=== PATIENT | male | born 1975 | race Caucasian/White ===

== ENCOUNTER 2016-09-11 12:34 | Emergency (ER) | payer MEDICAID ==
[~2016-09-11] VITALS: Ht 182.9 cm; Wt 88.5 kg
[~2016-09-11 12:34] MED LIST: CAR3125T PO; ENAL5TAB92 PO; HYDR25TA4 PO
[2016-09-11 12:55] VITALS: BP 154/111
[2016-09-11] MEDS ORDERED: cefTRIAXone SOD 1,000 MG VL IM ONE (13:15)
== END 2016-09-11 13:38 | disposition home or self-care (01) ==
LOC: ER 12:34
DX: L03.011 Cellulitis of right finger (principal); I11.0 Hypertensive heart disease with heart failure; I50.9 Heart failure, unspecified; F17.210 Nicotine dependence, cigarettes, uncomplicated; Z79.899 Other long term (current) drug therapy; Z98.61 Coronary angioplasty status
CPT/HCPCS: 96372; 99283; J0696

== ENCOUNTER 2017-07-05 23:00 | Emergency (ER) | payer MEDICAID ==
[~2017-07-05] VITALS: Ht 182.9 cm; Wt 88.5 kg
[2017-07-05 23:04] VITALS: BP 134/95
[2017-07-05 23:38] LABS: Basophils # (auto) 0.1 uL; Basophils % (auto) 2.3 % (0.0-2.0); Eosinophils # (auto) 0.2 uL; Hematocrit 49.4 % (41.0-53.0); Lymphocytes # (auto) 2.1 uL; Lymphocytes % (auto) 33.3 % (10.0-50.0); Mean Corpuscular Hemoglobin 30.6 pg (28.0-32.0); Mean Corpuscular Hgb Conc. 34.3 g/dL (32.0-36.0); Mean Corpuscular Volume 89.2 fL (80.0-100.0); Monocytes # (auto) 0.6 uL; Monocytes % (auto) 9.2 % (0.0-12.0); Neutrophils # (auto) 3.4 uL; Neutrophils % (auto) 52.2 % (37.0-80.0); Nucleated Red Blood Cells % 0.1 %; Platelet Count (auto) 215 10^3/uL (140-450); Red Blood Cells 5.54 10^6/uL (4.5-5.90); Red Cell Distribution Width 14.5 % (11.8-14.3); White Blood Cell 6.4 10^3/uL (4.4-10.8)
[2017-07-05 23:56] LABS: Albumin 3.4 g/dL (3.4-5.0); BUN/Creatinine Ratio 19.9; Calcium 8.6 mg/dL (8.5-10.1); Potassium 4.3 mmol/L (3.5-5.1)
[2017-07-06] LABS: Bilirubin, Total 0.6 mg/dL (0.2-1.0); Total Protein 6.4 g/dL (6.4-8.2)
== END 2017-07-06 01:14 | disposition left against medical advice (07) ==
LOC: ER 23:00
DX: R07.9 Chest pain, unspecified (principal); Z53.21 Procedure and treatment not carried out due to patient leaving prior to being seen by health care provider
CPT/HCPCS: 36415; 71045; 80053; 83880; 84484; 85025; 93005

== ENCOUNTER 2017-07-07 23:38 | Emergency (ER) | payer MEDICAID ==
[~2017-07-07] VITALS: Ht 177.8 cm; Wt 86.2 kg
[2017-07-08 01:20] LABS: Basophils # (auto) 0.1 uL; Basophils % (auto) 2.6 % (0.0-2.0); Eosinophils # (auto) 0 uL; Eosinophils % (auto) 0.9 % (0.0-7.0); Hematocrit 47.4 % (41.0-53.0); Hemoglobin 16.1 g/dL (13.5-17.5); Lymphocytes # (auto) 1.6 uL; Lymphocytes % (auto) 30.3 % (10.0-50.0); Mean Corpuscular Hgb Conc. 33.9 g/dL (32.0-36.0); Mean Corpuscular Volume 88.4 fL (80.0-100.0); Monocytes # (auto) 0.7 uL; Neutrophils # (auto) 2.7 uL; Neutrophils % (auto) 52.2 % (37.0-80.0); Nucleated Red Blood Cells % 0.1 %; Platelet Count (auto) 188 10^3/uL (140-450); Red Blood Cells 5.36 10^6/uL (4.5-5.90); Red Cell Distribution Width 14.8 % (11.8-14.3); White Blood Cell 5.2 10^3/uL (4.4-10.8)
[2017-07-08 01:26] LABS: Urine Bacteria NONE SEEN /hpf (None Seen); Urine Blood Negative /uL (Negative); Urine Mucus FEW (None Seen); Urine Specific Gravity 1.013 (1.001-1.035); Urine WBC <1 /hpf (0 - 3)
[2017-07-08 01:37] LABS: Albumin 3.1 g/dL (3.4-5.0); Calcium 8.1 mg/dL (8.5-10.1); INR 1.05 (0.9-1.15); Magnesium 2.3 mg/dL (1.6-2.6); Partial Thromboplastin Time 22.2 sec (22.64-33.71); Prothrombin Time 11.4 sec (9.37-12.3)
[2017-07-08 01:39] LABS: BUN/Creatinine Ratio 14.5
[2017-07-08 01:44] LABS: Bilirubin, Total 0.9 mg/dL (0.2-1.0); Total Protein 5.8 g/dL (6.4-8.2)
[2017-07-08 02:04] LABS: Alcohol, Urine < 3.0 mg/dL (0-5); Amphetamine Screen, Urine NEGATIVE (NEGATIVE); Barbiturate Scree,Urine NEGATIVE (NEGATIVE); Benzodiazephine Screen, Urine NEGATIVE (NEGATIVE); Cannabinoid Screen, Urine NEGATIVE (NEGATIVE); Cocaine Screen, Urine NEGATIVE (NEGATIVE); Opiate Scree,Urine NEGATIVE (NEGATIVE); Phencyclidine Screen, Urine NEGATIVE (NEGATIVE)
[2017-07-08] MEDS ORDERED: FUROSEMIDE 40 MG/4 ML VIAL IV ONE (02:15)
[2017-07-08 04:09] VITALS: BP 104/68
== END 2017-07-08 06:00 | disposition home or self-care (01) ==
LOC: EDBD 23:38 → ER 23:45
DX: R07.89 Other chest pain (principal); I11.0 Hypertensive heart disease with heart failure; I50.9 Heart failure, unspecified; R60.9 Edema, unspecified; F17.210 Nicotine dependence, cigarettes, uncomplicated
CPT/HCPCS: 36415; 71045; 80053; 80307; 81001; 83735; 83880; 84443; 84484; 85025; 85379; 85610; 85730; 93005; 96374; 99285; J1940

== ENCOUNTER 2017-07-09 22:23 | Emergency (ER) | payer MEDICAID ==
[~2017-07-09] VITALS: Ht 182.9 cm; Wt 86.2 kg
[2017-07-09 22:37] VITALS: BP 144/97
== END 2017-07-10 03:19 | disposition left against medical advice (07) ==
LOC: ER 22:23
DX: R00.2 Palpitations (principal); R07.9 Chest pain, unspecified; Z53.21 Procedure and treatment not carried out due to patient leaving prior to being seen by health care provider
CPT/HCPCS: 93005

== ENCOUNTER 2017-10-26 03:05 | Inpatient (IN) | payer MEDICAID ==
[~2017-10-26] VITALS: Ht 182.9 cm; Wt 88.1 kg
[2017-10-26 04:01] LABS: Basophils # (auto) 0.1 uL; Basophils % (auto) 1.1 % (0.0-2.0); Eosinophils # (auto) 0.1 uL; Eosinophils % (auto) 1.3 % (0.0-7.0); Hematocrit 44.5 % (41.0-53.0); Hemoglobin 14.8 g/dL (13.5-17.5); Lymphocytes % (auto) 11.5 % (10.0-50.0); Mean Corpuscular Hemoglobin 27.9 pg (28.0-32.0); Mean Corpuscular Hgb Conc. 33.2 g/dL (32.0-36.0); Monocytes # (auto) 0.7 uL; Monocytes % (auto) 8.2 % (0.0-12.0); Neutrophils # (auto) 6.6 uL; Neutrophils % (auto) 77.9 % (37.0-80.0); Platelet Count (auto) 223 10^3/uL (140-450); Red Cell Distribution Width 17.1 % (11.8-14.3); White Blood Cell 8.4 10^3/uL (4.4-10.8)
[2017-10-26 04:15] LABS: INR 2.31 (0.9-1.15); Prothrombin Time 23.6 sec (9.27-12.13)
[2017-10-26 04:18] LABS: Albumin 2.6 g/dL (3.4-5.0); BUN/Creatinine Ratio 14.3; Calcium 8.2 mg/dL (8.5-10.1); Magnesium 2.2 mg/dL (1.6-2.6); Potassium 3.9 mmol/L (3.5-5.1)
[2017-10-26] MEDS ORDERED: IOHEXOL 350 MG/ML 100ML IJ ONE (04:22)
[2017-10-26 04:23] LABS: Bilirubin, Total 2.1 mg/dL (0.2-1.0); Total Protein 6.2 g/dL (6.4-8.2)
[2017-10-26] MEDS ORDERED: SODIUM CHLORIDE 0.9% 1,000 ML IV ONE (04:30)
[2017-10-26] MEDS ORDERED: HYDROmorphone HCL 2 MG/ML VL IV ONE (04:30)
[2017-10-26] MEDS ORDERED: LORazepam 2MG/ML-1ML VIAL IV ONE (04:30)
[2017-10-26] MEDS ORDERED: ONDANSETRON HCL 4 MG/2 ML VIAL IV ONE (04:30)
[2017-10-26] MEDS ORDERED: ENOXAPARIN SOD 100 MG/1 ML SYRINGE SC ONE (05:30)
[2017-10-26] MEDS ORDERED: ONDANSETRON HCL 4 MG/2 ML VIAL IV PRN (05:45)
[2017-10-26] MEDS ORDERED: ACETAMINOPHEN 500 MG TAB PO PRN (05:45)
[2017-10-26] MEDS ORDERED: MORPHINE SULFATE 4 MG/ML SYR/VIAL IV PRN (05:45)
[2017-10-26] MEDS ORDERED: NITROGLYCERIN 0.4 MG SL TAB SL PRN (05:45)
[2017-10-26 07:22] LABS: Basophils # (auto) 0.1 uL; Basophils % (auto) 0.8 % (0.0-2.0); Eosinophils # (auto) 0.1 uL; Eosinophils % (auto) 1.1 % (0.0-7.0); Hematocrit 42.5 % (41.0-53.0); Hemoglobin 14.2 g/dL (13.5-17.5); Lymphocytes # (auto) 0.9 uL; Lymphocytes % (auto) 11.1 % (10.0-50.0); Mean Corpuscular Hemoglobin 28.1 pg (28.0-32.0); Mean Corpuscular Hgb Conc. 33.3 g/dL (32.0-36.0); Mean Corpuscular Volume 84.5 fL (80.0-100.0); Monocytes # (auto) 0.6 uL; Monocytes % (auto) 7.2 % (0.0-12.0); Neutrophils # (auto) 6.4 uL; Neutrophils % (auto) 79.8 % (37.0-80.0); Nucleated Red Blood Cells % 0.1 %; Platelet Count (auto) 214 10^3/uL (140-450); Red Blood Cells 5.04 10^6/uL (4.5-5.90); Red Cell Distribution Width 16.9 % (11.8-14.3)
[2017-10-26 07:42] LABS: BUN/Creatinine Ratio 15.2; Calcium 7.8 mg/dL (8.5-10.1)
[2017-10-26 08:00] VITALS: BP 116/96
[2017-10-26] MEDS ORDERED: FUROSEMIDE 20 MG TAB PO SCH (10:00)
[2017-10-26] MEDS: CARVEDILOL 3.125 MG TAB PO SCH ×2 (10:00→22:00)
[2017-10-26] MEDS: ASPirin-EC 81 mg tab PO SCH (11:11)
[2017-10-26] MEDS: LORazepam 0.5 MG TAB PO PRN ×2 (11:12→23:47)
[2017-10-26] MEDS: FAMOTIDINE 20 MG TAB PO SCH (11:12)
[2017-10-26 11:34] VITALS: BP 116/96
[2017-10-26 12:00] VITALS: BP 107/65
[2017-10-26] MEDS ORDERED: POTASSIUM CHL 20 Meq TABLET PO ONE (12:30)
[2017-10-26] MEDS ORDERED: ENALAPRIL MALEATE 2.5 MG TAB PO ONE (12:30)
[2017-10-26] MEDS ORDERED: PROMETHAZINE W/CODEINE 5 ML ORAL SYRUP PO PRN (12:30)
[2017-10-26] MEDS ORDERED: FUROSEMIDE 40 MG/4 ML VIAL IV ONE (12:30)
[2017-10-26] MEDS ORDERED: SPIRONOLACTONE 25 MG TAB PO ONE (12:30)
[2017-10-26] MEDS: guaiFENesin-CODEINE LIQUID 5 ML UD PO PRN ×2 (16:30→20:50)
[2017-10-26] MEDS: MORPHINE SULFATE 4 MG/ML SYR/VIAL IV PRN ×2 (16:37→20:40)
[2017-10-26 17:00] VITALS: BP 102/65
[2017-10-26] MEDS ORDERED: WARFARIN SODIUM 1 MG TAB PO ONE (17:00)
[2017-10-26 20:00] VITALS: BP 96/74
[2017-10-26 22:00] VITALS: BP 96/74
[2017-10-27] MEDS: guaiFENesin-CODEINE LIQUID 5 ML UD PO PRN (03:22)
[2017-10-27 05:00] VITALS: BP 93/63
[2017-10-27 08:04] LABS: BUN/Creatinine Ratio 16.9; Potassium 4.5 mmol/L (3.5-5.1)
[2017-10-27 08:32] LABS: INR 2.08 (0.9-1.15); Prothrombin Time 21.4 sec (9.27-12.13)
[2017-10-27 09:00] VITALS: BP 96/71
[2017-10-27] MEDS ORDERED: ENALAPRIL MALEATE 2.5 MG TAB PO SCH (10:00)
[2017-10-27] MEDS: POTASSIUM CHL 20 Meq TABLET PO SCH (10:00)
[2017-10-27] MEDS: LOSARTAN POTASSIUM 25 MG TAB PO SCH (10:00)
[2017-10-27] MEDS: CARVEDILOL 3.125 MG TAB PO SCH ×2 (10:00→21:56)
[2017-10-27 10:04] LABS: Alcohol, Urine < 3.0 mg/dL (0-5); Amphetamine Screen, Urine NEGATIVE (NEGATIVE); Barbiturate Scree,Urine NEGATIVE (NEGATIVE); Benzodiazephine Screen, Urine NEGATIVE (NEGATIVE); Cannabinoid Screen, Urine NEGATIVE (NEGATIVE); Cocaine Screen, Urine NEGATIVE (NEGATIVE); Opiate Scree,Urine POSITIVE (NEGATIVE); Phencyclidine Screen, Urine NEGATIVE (NEGATIVE)
[2017-10-27] MEDS: SPIRONOLACTONE 25 MG TAB PO SCH (10:07)
[2017-10-27] MEDS: MORPHINE SULFATE 4 MG/ML SYR/VIAL IV PRN ×2 (10:07→18:29)
[2017-10-27] MEDS: ASPirin-EC 81 mg tab PO SCH (10:08)
[2017-10-27] MEDS: FAMOTIDINE 20 MG TAB PO SCH (10:08)
[2017-10-27 13:00] VITALS: BP 117/76
[2017-10-27 16:52] VITALS: BP 100/76
[2017-10-27] MEDS ORDERED: WARFARIN SODIUM 1 MG TAB PO ONE (17:00)
[2017-10-27] MEDS: FUROSEMIDE 40 MG/4 ML VIAL IV SCH (18:31)
[2017-10-27 22:00] VITALS: BP 103/74
[2017-10-28] MEDS: MORPHINE SULFATE 4 MG/ML SYR/VIAL IV PRN ×3 (00:13→20:02)
[2017-10-28 05:00] VITALS: BP 106/71
[2017-10-28] MEDS: guaiFENesin-CODEINE LIQUID 5 ML UD PO PRN ×3 (05:29→22:22)
[2017-10-28 08:06] LABS: INR 1.75 (0.9-1.15); Prothrombin Time 18.1 sec (9.27-12.13)
[2017-10-28 08:07] LABS: BUN/Creatinine Ratio 20.3; Calcium 8.3 mg/dL (8.5-10.1); Potassium 4.6 mmol/L (3.5-5.1)
[2017-10-28 08:34] VITALS: BP 96/76
[2017-10-28] MEDS: POTASSIUM CHL 20 Meq TABLET PO SCH (10:00)
[2017-10-28] MEDS: LOSARTAN POTASSIUM 25 MG TAB PO SCH (10:00)
[2017-10-28] MEDS: CARVEDILOL 3.125 MG TAB PO SCH ×3 (10:00→23:16)
[2017-10-28] MEDS: FAMOTIDINE 20 MG TAB PO SCH (10:41)
[2017-10-28] MEDS: ASPirin-EC 81 mg tab PO SCH (10:41)
[2017-10-28] MEDS: SPIRONOLACTONE 25 MG TAB PO SCH (10:41)
[2017-10-28 12:08] VITALS: BP 110/85
[2017-10-28] MEDS ORDERED: ALBUTEROL SULF 2.5 MG/0.5ML(0.5%) NEB SOLN NEB PRN (14:45)
[2017-10-28] MEDS ORDERED: cefTRIAXone 1GM/10ml IVPUSH 10 ML IV SCH (15:00)
[2017-10-28 15:25] VITALS: BP 110/81
[2017-10-28] MEDS: AZITHROMYCIN 500MG/ 250ML 250 ML IV SCH ×2 (16:00→19:06)
[2017-10-28 16:31] VITALS: BP 113/82
[2017-10-28] MEDS: FUROSEMIDE 40 MG/4 ML VIAL IV SCH (16:36)
[2017-10-28] MEDS ORDERED: WARFARIN SODIUM 2 MG TAB PO ONE (17:00)
[2017-10-28 22:00] VITALS: BP 97/73
[2017-10-29 05:00] VITALS: BP 97/66
[2017-10-29 05:46] LABS: Basophils # (auto) 0.1 uL; Basophils % (auto) 2.3 % (0.0-2.0); Eosinophils # (auto) 0.1 uL; Hematocrit 43.2 % (41.0-53.0); Hemoglobin 14.5 g/dL (13.5-17.5); Lymphocytes # (auto) 0.9 uL; Lymphocytes % (auto) 14.7 % (10.0-50.0); Mean Corpuscular Hemoglobin 28.6 pg (28.0-32.0); Mean Corpuscular Hgb Conc. 33.6 g/dL (32.0-36.0); Monocytes # (auto) 0.4 uL; Monocytes % (auto) 7.5 % (0.0-12.0); Neutrophils # (auto) 4.3 uL; Neutrophils % (auto) 73.5 % (37.0-80.0); Nucleated Red Blood Cells % 0.1 %; Platelet Count (auto) 222 10^3/uL (140-450); Red Blood Cells 5.08 10^6/uL (4.5-5.90); Red Cell Distribution Width 17.2 % (11.8-14.3); White Blood Cell 5.9 10^3/uL (4.4-10.8)
[2017-10-29 05:53] LABS: INR 1.88 (0.9-1.15); Prothrombin Time 19.4 sec (9.27-12.13)
[2017-10-29 09:00] VITALS: BP 96/73
[2017-10-29] MEDS: LOSARTAN POTASSIUM 25 MG TAB PO SCH (10:00)
[2017-10-29] MEDS: POTASSIUM CHL 20 Meq TABLET PO SCH (10:54)
[2017-10-29] MEDS: SPIRONOLACTONE 25 MG TAB PO SCH (10:54)
[2017-10-29] MEDS: ASPirin-EC 81 mg tab PO SCH (10:54)
[2017-10-29] MEDS: FAMOTIDINE 20 MG TAB PO SCH (10:54)
[2017-10-29] MEDS: FUROSEMIDE 40 MG/4 ML VIAL IV SCH (10:55)
[2017-10-29] MEDS: CARVEDILOL 3.125 MG TAB PO SCH ×2 (10:55→22:00)
[2017-10-29] MEDS: guaiFENesin-CODEINE LIQUID 5 ML UD PO PRN (10:55)
[2017-10-29] MEDS: MORPHINE SULFATE 4 MG/ML SYR/VIAL IV PRN ×2 (10:56→17:26)
[2017-10-29] MEDS ORDERED: MILRINONE 4 MG in SODIUM CHL 0.9% 50 ML IV ONE (12:15)
[2017-10-29] MEDS: MILRINONE 20MG/100ML 100 ML IV SCH ×2 (12:46→22:56)
[2017-10-29 13:00] VITALS: BP 102/69
[2017-10-29 17:00] VITALS: BP 98/68
[2017-10-29] MEDS ORDERED: WARFARIN SODIUM 5 MG TAB PO ONE (17:00)
[2017-10-29 22:16] VITALS: BP 90/73
[2017-10-30] MEDS: MORPHINE SULFATE 4 MG/ML SYR/VIAL IV PRN ×2 (02:13→17:21)
[2017-10-30] MEDS: guaiFENesin-CODEINE LIQUID 5 ML UD PO PRN (02:14)
[2017-10-30] MEDS: MILRINONE 20MG/100ML 100 ML IV SCH ×2 (02:14→17:03)
[2017-10-30 05:53] VITALS: BP 112/86
[2017-10-30 07:39] LABS: INR 1.99 (0.9-1.15); Prothrombin Time 20.5 sec (9.27-12.13)
[2017-10-30 07:41] LABS: BUN/Creatinine Ratio 20.3; Calcium 8.1 mg/dL (8.5-10.1)
[2017-10-30 08:14] LABS: Basophils # (auto) 0.1 uL; Basophils % (auto) 1.5 % (0.0-2.0); Eosinophils # (auto) 0.2 uL; Eosinophils % (auto) 4.1 % (0.0-7.0); Hemoglobin 13.3 g/dL (13.5-17.5); Lymphocytes # (auto) 0.8 uL; Lymphocytes % (auto) 16.4 % (10.0-50.0); Mean Corpuscular Hemoglobin 27.6 pg (28.0-32.0); Mean Corpuscular Hgb Conc. 32.5 g/dL (32.0-36.0); Mean Corpuscular Volume 84.9 fL (80.0-100.0); Monocytes # (auto) 0.5 uL; Monocytes % (auto) 10.1 % (0.0-12.0); Neutrophils # (auto) 3.3 uL; Neutrophils % (auto) 67.9 % (37.0-80.0); Nucleated Red Blood Cells % 0.1 %; Platelet Count (auto) 229 10^3/uL (140-450); Red Blood Cells 4.83 10^6/uL (4.5-5.90); Red Cell Distribution Width 17.1 % (11.8-14.3); White Blood Cell 4.9 10^3/uL (4.4-10.8)
[2017-10-30 09:09] VITALS: BP 100/83
[2017-10-30] MEDS: FUROSEMIDE 40 MG/4 ML VIAL IV SCH (09:57)
[2017-10-30] MEDS: SPIRONOLACTONE 25 MG TAB PO SCH (09:57)
[2017-10-30] MEDS: FAMOTIDINE 20 MG TAB PO SCH (09:58)
[2017-10-30] MEDS: CARVEDILOL 3.125 MG TAB PO SCH ×2 (09:58→22:00)
[2017-10-30] MEDS: POTASSIUM CHL 20 Meq TABLET PO SCH (09:58)
[2017-10-30] MEDS: ASPirin-EC 81 mg tab PO SCH (09:58)
[2017-10-30] MEDS ORDERED: LOSARTAN POTASSIUM 25 MG TAB PO ONE (10:00)
[2017-10-30 13:22] VITALS: BP 89/69
[2017-10-30 14:10] VITALS: BP 102/75
[2017-10-30] MEDS ORDERED: WARFARIN SODIUM 1 MG TAB PO ONE (17:00)
[2017-10-30 17:54] VITALS: BP 93/71
[2017-10-30 22:00] VITALS: BP 101/70
[2017-10-31] MEDS: MILRINONE 20MG/100ML 100 ML IV SCH (02:25)
[2017-10-31 04:50] VITALS: BP 118/77
[2017-10-31 06:20] LABS: Basophils # (auto) 0.1 uL; Basophils % (auto) 1.2 % (0.0-2.0); Eosinophils # (auto) 0.2 uL; Eosinophils % (auto) 3.6 % (0.0-7.0); Hematocrit 40.7 % (41.0-53.0); Hemoglobin 13.7 g/dL (13.5-17.5); Lymphocytes # (auto) 0.8 uL; Lymphocytes % (auto) 17.5 % (10.0-50.0); Mean Corpuscular Hemoglobin 28.5 pg (28.0-32.0); Mean Corpuscular Hgb Conc. 33.6 g/dL (32.0-36.0); Mean Corpuscular Volume 84.8 fL (80.0-100.0); Monocytes # (auto) 0.4 uL; Neutrophils % (auto) 67.7 % (37.0-80.0); Nucleated Red Blood Cells % 0.1 %; Platelet Count (auto) 254 10^3/uL (140-450); Red Cell Distribution Width 16.8 % (11.8-14.3); White Blood Cell 4.5 10^3/uL (4.4-10.8)
[2017-10-31 06:32] LABS: INR 2.05 (0.9-1.15); Prothrombin Time 21.1 sec (9.27-12.13)
[2017-10-31 06:50] LABS: Albumin 2.4 g/dL (3.4-5.0); Calcium 8.2 mg/dL (8.5-10.1); Potassium 4.4 mmol/L (3.5-5.1)
[2017-10-31 06:52] LABS: BUN/Creatinine Ratio 21.5
[2017-10-31 06:55] LABS: Bilirubin, Total 0.9 mg/dL (0.2-1.0)
[2017-10-31] MEDS: HYDROcodone-ACET 5/325MG TAB PO PRN ×2 (08:04→12:30)
[2017-10-31 08:50] VITALS: BP 133/67
[2017-10-31] MEDS ORDERED: LOSARTAN POTASSIUM 50 MG TAB PO SCH (10:00)
[2017-10-31] MEDS: POTASSIUM CHL 20 Meq TABLET PO SCH (10:00)
[2017-10-31] MEDS: SPIRONOLACTONE 25 MG TAB PO SCH (10:00)
[2017-10-31] MEDS: FUROSEMIDE 40 MG/4 ML VIAL IV SCH (10:27)
[2017-10-31] MEDS: CARVEDILOL 3.125 MG TAB PO SCH (10:29)
[2017-10-31] MEDS: FAMOTIDINE 20 MG TAB PO SCH (10:29)
[2017-10-31] MEDS: ASPirin-EC 81 mg tab PO SCH (10:29)
[2017-10-31 10:57] VITALS: BP 133/67
[2017-10-31 12:44] VITALS: BP 109/78
[2017-10-31] MEDS ORDERED: WARFARIN SODIUM 1 MG TAB PO ONE (17:00)
== END 2017-10-31 15:00 | disposition home or self-care (01) | DRG 134 ==
LOC: ER 03:06 → TELE 03:07 → TELE-CENTR 08:14
PROVIDERS: ADMIT Nurse Practitioner Family; ATTEND Internal Medicine
DX: I26.99 Other pulmonary embolism without acute cor pulmonale (principal); I50.43 Acute on chronic combined systolic (congestive) and diastolic (congestive) heart failure; E44.0 Moderate protein-calorie malnutrition; I42.0 Dilated cardiomyopathy; I11.0 Hypertensive heart disease with heart failure; F17.210 Nicotine dependence, cigarettes, uncomplicated; Z72.89 Other problems related to lifestyle; Z79.01 Long term (current) use of anticoagulants; Z79.899 Other long term (current) drug therapy; Z95.810 Presence of automatic (implantable) cardiac defibrillator; F41.9 Anxiety disorder, unspecified; Z98.61 Coronary angioplasty status; F19.11 Other psychoactive substance abuse, in remission; Z68.26 Body mass index [BMI] 26.0-26.9, adult
CPT/HCPCS: 36415; 36600; 71045; 71046; 71275; 80048; 80053; 80307; 82805; 83735; 83880; 84484; 85025; 85610; 85730; 87040; 87081; 93005; 93306; 93970; 94640; 96361; 96372; 96374; 96375; 99291; J0696; J2405

== ENCOUNTER 2018-01-04 08:48 | Emergency (ER) | payer MEDICAID ==
[~2018-01-04] VITALS: Ht 182.9 cm; Wt 90.7 kg
[~2018-01-04 08:48] MED LIST changes: +ENAL5TAB PO; -ENAL5TAB92 PO
[2018-01-04] MEDS ORDERED: FUROSEMIDE 40 MG/4 ML VIAL IV ONE ×2 (09:15→12:15)
[2018-01-04 09:55] LABS: Eosinophils # (auto) 0.1 uL; Hematocrit 49.6 % (41.0-53.0); Monocytes # (auto) 0.6 uL; Nucleated Red Blood Cells % 0.1 %
[2018-01-04 09:56] LABS: Basophils # (auto) 0 uL; Basophils % (auto) 0.9 % (0.0-2.0); Eosinophils % (auto) 1.2 % (0.0-7.0); Hemoglobin 16.2 g/dL (13.5-17.5); Lymphocytes # (auto) 0.5 uL; Lymphocytes % (auto) 10.1 % (10.0-50.0); Mean Corpuscular Hemoglobin 26.9 pg (28.0-32.0); Mean Corpuscular Hgb Conc. 32.8 g/dL (32.0-36.0); Mean Corpuscular Volume 82.2 fL (80.0-100.0); Monocytes % (auto) 11.7 % (0.0-12.0); Neutrophils # (auto) 3.9 uL; Neutrophils % (auto) 76.1 % (37.0-80.0); Platelet Count (auto) 212 10^3/uL (140-450); Red Blood Cells 6.03 10^6/uL (4.5-5.90); Red Cell Distribution Width 18.9 % (11.8-14.3); White Blood Cell 5.2 10^3/uL (4.4-10.8)
[2018-01-04 10:10] LABS: BUN/Creatinine Ratio 20.3; Calcium 8.3 mg/dL (8.5-10.1); Potassium 3.8 mmol/L (3.5-5.1)
[2018-01-04 10:15] LABS: Bilirubin, Total 2.2 mg/dL (0.2-1.0)
[2018-01-04] MEDS ORDERED: ENOXAPARIN SOD 100 MG/1 ML SYRINGE SC ONE (12:00)
[2018-01-04 12:15] VITALS: BP 103/57
[2018-01-04] MEDS ORDERED: ACETAMINOPHEN 500 MG TAB PO PRN (12:15)
[2018-01-04] MEDS ORDERED: LORazepam 0.5 MG TAB PO PRN (12:15)
[2018-01-04] MEDS ORDERED: MORPHINE SULFATE 4 MG/ML SYR/VIAL IV PRN (12:15)
[2018-01-04] MEDS ORDERED: POTASSIUM CHL 20 Meq TABLET PO ONE (12:15)
[2018-01-04] MEDS ORDERED: NITROGLYCERIN 0.4 MG SL TAB SL PRN (12:15)
[2018-01-04] MEDS ORDERED: traMADol HCL 50 MG TAB PO PRN (12:15)
[2018-01-04] MEDS ORDERED: NITROGLYCERIN 0.2MG/HR TOPICAL PATCH TD ONE (12:15)
[2018-01-04] MEDS ORDERED: ONDANSETRON HCL 4 MG/2 ML VIAL IV PRN (12:15)
[2018-01-04] MEDS ORDERED: NALBUPHINE HCL 10 MG/1ml INJECTION IV PRN (12:15)
[2018-01-04] MEDS ORDERED: ENALAPRIL MALEATE 2.5 MG TAB PO ONE (12:15)
[2018-01-04] MEDS ORDERED: CARVEDILOL 3.125 MG TAB PO ONE (12:15)
[2018-01-04] MEDS ORDERED: ENOXAPARIN SOD 40 MG/0.4 ML SYRINGE SC ONE (12:15)
[2018-01-04] MEDS ORDERED: TEMAZEPAM 15 MG CAP PO PRN (12:15)
[2018-01-04] MEDS ORDERED: LACTULOSE 20Gm/30ML SOLN PO PRN (12:15)
[2018-01-04] MEDS ORDERED: PANTOPRAZOLE 40 MG TAB PO ONE (12:30)
[2018-01-04] MEDS ORDERED: ASPirin 81 mg TAB PO ONE (12:30)
[2018-01-05] MEDS ORDERED: ENALAPRIL MALEATE 2.5 MG TAB PO SCH (10:00)
[2018-01-05] MEDS ORDERED: ENOXAPARIN SOD 40 MG/0.4 ML SYRINGE SC SCH (10:00)
[2018-01-05] MEDS ORDERED: ASPirin 81 mg TAB PO SCH ×2 (10:00)
[2018-01-05] MEDS ORDERED: PANTOPRAZOLE 40 MG TAB PO SCH (10:00)
[2018-01-05] MEDS ORDERED: NITROGLYCERIN 0.2MG/HR TOPICAL PATCH TD SCH (10:00)
[2018-01-05] MEDS ORDERED: CARVEDILOL 3.125 MG TAB PO SCH (10:00)
[2018-01-05] MEDS ORDERED: FUROSEMIDE 40 MG/4 ML VIAL IV SCH (10:00)
[2018-01-05] MEDS ORDERED: POTASSIUM CHL 20 Meq TABLET PO SCH (10:00)
== END 2018-01-04 12:37 | disposition left against medical advice (07) ==
LOC: ER 08:48
DX: I11.0 Hypertensive heart disease with heart failure (principal); I50.9 Heart failure, unspecified; R79.89 Other specified abnormal findings of blood chemistry; Z79.899 Other long term (current) drug therapy; Z86.711 Personal history of pulmonary embolism; Z95.0 Presence of cardiac pacemaker; Z98.61 Coronary angioplasty status; Z53.29 Procedure and treatment not carried out because of patient's decision for other reasons
CPT/HCPCS: 36415; 71046; 80053; 82550; 82962; 83880; 84484; 85025; 85379; 86141; 93005; 96374; 99285; J1940

== ENCOUNTER 2018-01-24 18:37 | Inpatient (IN) | payer MEDICAID ==
[~2018-01-24] VITALS: Ht 188 cm; Wt 89.4 kg
[2018-01-24 19:38] LABS: Basophils # (auto) 0.1 uL; Eosinophils # (auto) 0 uL; Lymphocytes # (auto) 0.6 uL; Lymphocytes % (auto) 14.6 % (10.0-50.0); Nucleated Red Blood Cells % 0.2 %
[2018-01-24 19:40] LABS: Basophils % (auto) 2.1 % (0.0-2.0); Hemoglobin 15.3 g/dL (13.5-17.5); Mean Corpuscular Hemoglobin 26.6 pg (28.0-32.0); Mean Corpuscular Hgb Conc. 32.5 g/dL (32.0-36.0); Mean Corpuscular Volume 82.1 fL (80.0-100.0); Monocytes # (auto) 0.7 uL; Monocytes % (auto) 16.2 % (0.0-12.0); Neutrophils # (auto) 2.8 uL; Neutrophils % (auto) 66.1 % (37.0-80.0); Platelet Count (auto) 227 10^3/uL (140-450); Red Blood Cells 5.73 10^6/uL (4.5-5.90); Red Cell Distribution Width 18.9 % (11.8-14.3); White Blood Cell 4.3 10^3/uL (4.4-10.8)
[2018-01-24 19:56] LABS: Albumin 2.9 g/dL (3.4-5.0); BUN/Creatinine Ratio 17.7; Calcium 8.6 mg/dL (8.5-10.1); Potassium 5.1 mmol/L (3.5-5.1)
[2018-01-24 20:01] LABS: Bilirubin, Total 1.9 mg/dL (0.2-1.0); Total Protein 6.9 g/dL (6.4-8.2)
[2018-01-24] MEDS ORDERED: NITROGLYCERIN 0.4 MG SL TAB SL PRN (21:15)
[2018-01-24] MEDS ORDERED: MORPHINE SULFATE 4 MG/ML SYR/VIAL IV PRN (21:15)
[2018-01-24] MEDS ORDERED: FUROSEMIDE 40 MG/4 ML VIAL IV ONE (21:15)
[2018-01-24] MEDS ORDERED: ACETAMINOPHEN 325 MG TAB PO PRN (21:30)
[2018-01-24] MEDS: ONDANSETRON HCL 4 MG/2 ML VIAL IV PRN (21:34)
[2018-01-24 22:05] LABS: INR 1.56 (0.9-1.15); Partial Thromboplastin Time 27.1 sec (23.78-33.04); Prothrombin Time 16.3 sec (9.27-12.13)
[2018-01-24] MEDS: CARVEDILOL 3.125 MG TAB PO SCH (22:25)
[2018-01-24] MEDS: APIXABAN 5 MG TAB PO SCH (22:25)
[2018-01-24] MEDS: FAMOTIDINE 20 MG TAB PO SCH (22:25)
[2018-01-25] VITALS (30 sets, daily range): BP systolic 84–131; BP diastolic 56–102
[2018-01-25] MEDS ORDERED: IOHEXOL 350 MG/ML 100ML IJ ONE (00:46)
[2018-01-25] MEDS: HYDROcodone-ACET 5/325MG TAB PO PRN (03:17)
[2018-01-25] MEDS ORDERED: DOXE25CA2 PO (04:04)
[2018-01-25] MEDS ORDERED: FURO40TA PO (04:04)
[2018-01-25] MEDS ORDERED: SPIR50TA5 PO (04:04)
[2018-01-25] MEDS ORDERED: FAM20T PO (04:07)
[2018-01-25] MEDS ORDERED: APIX5TAB OR (04:07)
[2018-01-25] MEDS ORDERED: POTA10TA51 PO (04:09)
[2018-01-25] MEDS ORDERED: FUROSEMIDE 20 MG/2 ML VIAL IV SCH (06:00)
[2018-01-25] MEDS ORDERED: LOSARTAN POTASSIUM 50 MG TAB PO SCH (10:00)
[2018-01-25] MEDS ORDERED: ASPirin 81 mg TAB PO SCH (10:00)
[2018-01-25] MEDS: APIXABAN 5 MG TAB PO SCH ×2 (10:50→22:02)
[2018-01-25] MEDS: FAMOTIDINE 20 MG TAB PO SCH ×2 (10:50→22:02)
[2018-01-25] MEDS: CARVEDILOL 3.125 MG TAB PO SCH ×2 (10:50→22:01)
[2018-01-25] MEDS: guaiFENesin-DM 100/10mg/5ml SYR PO PRN ×2 (11:41→17:33)
[2018-01-25] MEDS ORDERED: MILRINONE IV ONE (15:15)
[2018-01-25] MEDS ORDERED: SODIUM CHL 0.9% IV ONE (15:15)
[2018-01-25] MEDS: ALBUMIN 25% 100 ML IV SCH ×2 (15:36→17:32)
[2018-01-25] MEDS ORDERED: FUROSEMIDE 40 MG/4 ML VIAL IV ONE (17:00)
[2018-01-25] MEDS: MILRINONE 20MG/100ML 100 ML IV SCH (17:35)
[2018-01-25] MEDS ORDERED: FUROSEMIDE 40 MG/4 ML VIAL IV SCH (18:00)
[2018-01-25] MEDS: FUROSEMIDE 40 MG/4 ML VIAL IV SCH (18:37)
[2018-01-25] MEDS: TEMAZEPAM 15 MG CAP PO PRN (23:48)
[2018-01-26] VITALS (67 sets, daily range): BP systolic 89–141; BP diastolic 40–97
[2018-01-26] MEDS: MILRINONE 20MG/100ML 100 ML IV SCH ×3 (01:00→18:43)
[2018-01-26 05:00] LABS: BUN/Creatinine Ratio 25.5; Calcium 8.2 mg/dL (8.5-10.1); Potassium 4.1 mmol/L (3.5-5.1)
[2018-01-26] MEDS: FUROSEMIDE 40 MG/4 ML VIAL IV SCH ×2 (05:56→17:50)
[2018-01-26] MEDS: FAMOTIDINE 20 MG TAB PO SCH ×2 (09:45→22:00)
[2018-01-26] MEDS: DIGOXIN 0.125 MG TAB PO SCH (09:45)
[2018-01-26] MEDS: APIXABAN 5 MG TAB PO SCH ×2 (09:45→22:00)
[2018-01-26] MEDS: SACUBITRIL-VALSARTAN 24mg/26mg TAB PO SCH ×3 (09:45→22:00)
[2018-01-26] MEDS: CARVEDILOL 3.125 MG TAB PO SCH ×2 (09:46→22:00)
[2018-01-26] MEDS: guaiFENesin-DM 100/10mg/5ml SYR PO PRN (11:19)
[2018-01-26] MEDS: HYDROcodone-ACET 5/325MG TAB PO PRN (11:21)
[2018-01-26] MEDS: SPIRONOLACTONE 25 MG TAB PO SCH (17:50)
[2018-01-26] MEDS ORDERED: DOCUSATE SOD 100 MG CAP PO PRN (18:30)
[2018-01-26] MEDS: TEMAZEPAM 15 MG CAP PO PRN (22:57)
[2018-01-27] VITALS (60 sets, daily range): BP systolic 92–157; BP diastolic 46–92
[2018-01-27] MEDS: MILRINONE 20MG/100ML 100 ML IV SCH (03:49)
[2018-01-27] MEDS: SPIRONOLACTONE 25 MG TAB PO SCH ×2 (08:00→17:33)
[2018-01-27] MEDS: FUROSEMIDE 40 MG/4 ML VIAL IV SCH ×2 (08:00→17:33)
[2018-01-27] MEDS: guaiFENesin-DM 100/10mg/5ml SYR PO PRN ×2 (08:30→23:35)
[2018-01-27] MEDS: SACUBITRIL-VALSARTAN 24mg/26mg TAB PO SCH ×2 (10:00→21:35)
[2018-01-27] MEDS: APIXABAN 5 MG TAB PO SCH ×2 (10:46→21:51)
[2018-01-27] MEDS: CARVEDILOL 3.125 MG TAB PO SCH ×2 (10:46→21:52)
[2018-01-27] MEDS: DIGOXIN 0.125 MG TAB PO SCH (10:46)
[2018-01-27] MEDS: FAMOTIDINE 20 MG TAB PO SCH ×2 (10:47→21:51)
[2018-01-27] MEDS ORDERED: MILRINONE 20MG/100ML 100 ML IV ONE (14:01)
[2018-01-27] MEDS: TEMAZEPAM 15 MG CAP PO PRN (20:45)
[2018-01-27 21:17] LABS: BUN/Creatinine Ratio 19.4; Calcium 8.2 mg/dL (8.5-10.1); Magnesium 2.1 mg/dL (1.6-2.6); Potassium 3.9 mmol/L (3.5-5.1)
[2018-01-28] VITALS (22 sets, daily range): BP systolic 89–123; BP diastolic 38–86
[2018-01-28 03:37] LABS: Eosinophils # (auto) 0.1 uL; Hemoglobin 14.3 g/dL (13.5-17.5); Monocytes # (auto) 0.7 uL; Neutrophils % (auto) 65.9 % (37.0-80.0)
[2018-01-28 03:39] LABS: Basophils # (auto) 0.2 uL; Basophils % (auto) 4.3 % (0.0-2.0); Eosinophils % (auto) 1.2 % (0.0-7.0); Hematocrit 44.6 % (41.0-53.0); Lymphocytes # (auto) 0.5 uL; Lymphocytes % (auto) 11.8 % (10.0-50.0); Mean Corpuscular Hgb Conc. 32.1 g/dL (32.0-36.0); Monocytes % (auto) 16.8 % (0.0-12.0); Neutrophils # (auto) 2.9 uL; Nucleated Red Blood Cells % 0.1 %; Platelet Count (auto) 202 10^3/uL (140-450); Red Blood Cells 5.58 10^6/uL (4.5-5.90); Red Cell Distribution Width 18.8 % (11.8-14.3); White Blood Cell 4.4 10^3/uL (4.4-10.8)
[2018-01-28 03:40] LABS: Mean Corpuscular Hemoglobin 25.8 pg (28.0-32.0)
[2018-01-28] MEDS: guaiFENesin-DM 100/10mg/5ml SYR PO PRN ×2 (03:51→09:02)
[2018-01-28 04:14] LABS: BUN/Creatinine Ratio 21.7; Calcium 8.3 mg/dL (8.5-10.1); Potassium 4.1 mmol/L (3.5-5.1)
[2018-01-28] MEDS: SPIRONOLACTONE 25 MG TAB PO SCH ×2 (05:59→18:05)
[2018-01-28] MEDS: FUROSEMIDE 40 MG/4 ML VIAL IV SCH ×2 (06:07→18:06)
[2018-01-28] MEDS: ONDANSETRON HCL 4 MG/2 ML VIAL IV PRN (06:25)
[2018-01-28] MEDS ORDERED: LORazepam 2MG/ML-1ML VIAL IV ONE (06:45)
[2018-01-28] MEDS ORDERED: LORA-655 PO (08:37)
[2018-01-28] MEDS: SACUBITRIL-VALSARTAN 24mg/26mg TAB PO SCH ×2 (09:01→22:00)
[2018-01-28] MEDS: CARVEDILOL 3.125 MG TAB PO SCH (09:01)
[2018-01-28] MEDS: APIXABAN 5 MG TAB PO SCH ×2 (09:01→21:33)
[2018-01-28] MEDS: FAMOTIDINE 20 MG TAB PO SCH ×2 (09:02→21:38)
[2018-01-28] MEDS: DIGOXIN 0.125 MG TAB PO SCH (09:02)
[2018-01-28] MEDS: LORazepam 0.5 MG TAB PO PRN (11:22)
[2018-01-28] MEDS ORDERED: MORPHINE SULFATE 4 MG/ML SYR/VIAL IV PRN (12:30)
[2018-01-28] MEDS ORDERED: HYDROcodone-ACET 5/325MG TAB PO PRN (12:30)
[2018-01-28] MEDS ORDERED: MILRINONE 20MG/100ML 100 ML IV SCH (13:37)
[2018-01-28] MEDS ORDERED: MILRINONE 4 MG in SODIUM CHL 0.9% 50 ML IV ONE (14:00)
[2018-01-28] MEDS: MILRINONE 20MG/100ML 100 ML IV SCH (14:16)
[2018-01-28] MEDS: CARVEDILOL 12.5 MG TAB PO SCH (22:00)
[2018-01-29] VITALS (23 sets, daily range): BP systolic 92–136; BP diastolic 53–86
[2018-01-29] MEDS: LORazepam 0.5 MG TAB PO PRN ×2 (00:09→21:42)
[2018-01-29 04:04] LABS: BUN/Creatinine Ratio 22.6; Calcium 8.6 mg/dL (8.5-10.1); Potassium 4.2 mmol/L (3.5-5.1)
[2018-01-29] MEDS: SPIRONOLACTONE 25 MG TAB PO SCH ×2 (06:12→18:18)
[2018-01-29] MEDS: FUROSEMIDE 40 MG/4 ML VIAL IV SCH ×2 (06:12→18:18)
[2018-01-29] MEDS: MILRINONE 20MG/100ML 100 ML IV SCH ×2 (06:42→18:18)
[2018-01-29] MEDS: APIXABAN 5 MG TAB PO SCH ×2 (09:52→21:42)
[2018-01-29] MEDS: CARVEDILOL 12.5 MG TAB PO SCH ×2 (09:53→21:42)
[2018-01-29] MEDS: DIGOXIN 0.125 MG TAB PO SCH (09:53)
[2018-01-29] MEDS: SACUBITRIL-VALSARTAN 24mg/26mg TAB PO SCH ×2 (09:53→21:42)
[2018-01-29] MEDS: FAMOTIDINE 20 MG TAB PO SCH ×2 (09:53→21:42)
[2018-01-30 00:01] VITALS: BP 98/64
[2018-01-30 00:55] VITALS: BP 98/64
== END 2018-01-30 00:55 | disposition short-term general hospital (02) | DRG 194 ==
LOC: ER 18:37 → TELE 18:38 → TELE-WESTW 23:30 → ICU WEST 01-25 17:00
PROVIDERS: ADMIT Nurse Practitioner; ATTEND Internal Medicine
PROC: 5A09357 Assistance with Respiratory Ventilation, Less than 24 Consecutive Hours, Continuous Positive Airway Pressure (ICD-10-PCS; principal; 2018-01-28)
DX: I13.0 Hypertensive heart and chronic kidney disease with heart failure and stage 1 through stage 4 chronic kidney disease, or unspecified chronic kidney disease (principal); R57.0 Cardiogenic shock; N17.9 Acute kidney failure, unspecified; E44.0 Moderate protein-calorie malnutrition; I95.9 Hypotension, unspecified; I42.0 Dilated cardiomyopathy; I42.9 Cardiomyopathy, unspecified; Z79.01 Long term (current) use of anticoagulants; I50.43 Acute on chronic combined systolic (congestive) and diastolic (congestive) heart failure; F41.9 Anxiety disorder, unspecified; R06.03 Acute respiratory distress; N18.9 Chronic kidney disease, unspecified; I34.0 Nonrheumatic mitral (valve) insufficiency; Z86.711 Personal history of pulmonary embolism; Z86.718 Personal history of other venous thrombosis and embolism; Z95.810 Presence of automatic (implantable) cardiac defibrillator; Z68.25 Body mass index [BMI] 25.0-25.9, adult
CPT/HCPCS: 36415; 71045; 71046; 71275; 80048; 80053; 83735; 83880; 84484; 85025; 85379; 85610; 85730; 87081; 93005; 94660; 94761; 96374; 96375; G0378; J2405; P9047

== ENCOUNTER 2018-02-01 05:32 | Emergency (ER) | payer MEDICAID ==
[~2018-02-01] VITALS: Ht 182.9 cm; Wt 83.9 kg
[~2018-02-01 05:32] MED LIST changes: +APIX5TAB OR; +DOXE25CA2 PO; +FAM20T PO; +FURO40TA PO; +LORA-655 PO; +POTA10TA51 PO; +SPIR50TA5 PO
[2018-02-01 06:35] LABS: Eosinophils # (auto) 0.1 uL; Lymphocytes # (auto) 0.8 uL; Monocytes # (auto) 0.9 uL; White Blood Cell 6.4 10^3/uL (4.4-10.8)
[2018-02-01 06:37] LABS: Basophils # (auto) 0 uL; Basophils % (auto) 0.6 % (0.0-2.0); Hemoglobin 16.4 g/dL (13.5-17.5); Lymphocytes % (auto) 12.2 % (10.0-50.0); Mean Corpuscular Hemoglobin 26.2 pg (28.0-32.0); Mean Corpuscular Hgb Conc. 32.7 g/dL (32.0-36.0); Mean Corpuscular Volume 80.1 fL (80.0-100.0); Monocytes % (auto) 13.9 % (0.0-12.0); Neutrophils # (auto) 4.6 uL; Neutrophils % (auto) 72.3 % (37.0-80.0); Nucleated Red Blood Cells % 0.1 %; Platelet Count (auto) 247 10^3/uL (140-450); Red Blood Cells 6.25 10^6/uL (4.5-5.90); Red Cell Distribution Width 18.5 % (11.8-14.3)
[2018-02-01 06:57] LABS: Albumin 3.3 g/dL (3.4-5.0); Calcium 8.7 mg/dL (8.5-10.1); Magnesium 2.6 mg/dL (1.6-2.6); Potassium 5.4 mmol/L (3.5-5.1)
[2018-02-01] MEDS ORDERED: FUROSEMIDE 40 MG/4 ML VIAL IV ONE (07:00)
[2018-02-01 07:02] LABS: Bilirubin, Total 1.7 mg/dL (0.2-1.0); Total Protein 7.4 g/dL (6.4-8.2)
[2018-02-01 07:04] LABS: Urine Bacteria NONE SEEN /hpf (None Seen); Urine Blood Negative /uL (Negative); Urine Hyaline Cast MOD /lpf (0 - 2); Urine WBC 1 /hpf (0 - 3)
[2018-02-01 07:30] VITALS: BP 117/73
== END 2018-02-01 08:27 | disposition left against medical advice (07) ==
LOC: ER 05:35
DX: I11.0 Hypertensive heart disease with heart failure (principal); I50.9 Heart failure, unspecified; F15.90 Other stimulant use, unspecified, uncomplicated; R06.02 Shortness of breath; R05 Cough; Z86.711 Personal history of pulmonary embolism; Z98.61 Coronary angioplasty status; Z95.810 Presence of automatic (implantable) cardiac defibrillator; Z79.899 Other long term (current) drug therapy
CPT/HCPCS: 36415; 70450; 71045; 80053; 81001; 83735; 83880; 84484; 85025; 93005

== ENCOUNTER 2018-05-10 01:44 | Emergency (ER) | payer MEDICAID ==
[~2018-05-10] VITALS: Ht 177.8 cm; Wt 90.7 kg
[~2018-05-10 01:44] MED LIST changes: -CAR3125T PO; +DIGO0.1229 PO; -ENAL5TAB PO; +SACU1TAB PO
[2018-05-10 02:03] VITALS: BP 109/68
== END 2018-05-10 07:56 | disposition left against medical advice (07) ==
LOC: EDUNIT# 01:44 → ER 01:48
DX: R10.9 Unspecified abdominal pain (principal); Z53.21 Procedure and treatment not carried out due to patient leaving prior to being seen by health care provider

== ENCOUNTER 2018-05-29 06:02 | Inpatient (IN) | payer MEDICAID | END 2018-05-31 19:40 | disposition home or self-care (01) | LOC: TELE-WESTW 20:54 → ER 06:02 → TELE 15:24 → TELE-WESTW 20:54 | DX: K70.31 Alcoholic cirrhosis of liver with ascites (principal); I50.43 Acute on chronic combined systolic (congestive) and diastolic (congestive) heart failure; E44.0 Moderate protein-calorie malnutrition; I31.3 Pericardial effusion (noninflammatory); N18.3 Chronic kidney disease, stage 3 (moderate); I08.1 Rheumatic disorders of both mitral and tricuspid valves; I13.0 Hypertensive heart and chronic kidney disease with heart failure and stage 1 through stage 4 chronic kidney disease, or unspecified chronic kidney disease; E03.9 Hypothyroidism, unspecified ==

== ENCOUNTER 2019-02-24 01:32 | Emergency (ER) | payer MEDICAID ==
[~2019-02-24] VITALS: Ht 180.3 cm; Wt 86.2 kg
[~2019-02-24 01:32] MED LIST changes: +BUME1TAB3 PO; -DIGO0.1229 PO; +DIGO0.1238 PO; +FURO1TAB31 PO; -FURO40TA PO; +SPIR25TA8 PO; -SPIR50TA5 PO
[2019-02-24 02:07] VITALS: BP 154/71
== END 2019-02-24 02:14 | disposition left against medical advice (07) ==
LOC: EDBD 01:32 → ER 01:35
DX: R10.10 Upper abdominal pain, unspecified (principal); R11.2 Nausea with vomiting, unspecified; R06.02 Shortness of breath; Z53.21 Procedure and treatment not carried out due to patient leaving prior to being seen by health care provider
CPT/HCPCS: 93005

== ENCOUNTER 2022-05-10 20:17 | Inpatient (IN) | payer MEDICAID ==
[~2022-05-10] VITALS: Ht 182.9 cm; Wt 101.3 kg
[~2022-05-10 20:17] MED LIST changes: -BUME1TAB3 PO; +CAR3125T PO; -DIGO0.1238 PO; +DIGO1TAB48 PO; -FAM20T PO; +FAMO20TA10 PO; -HYDR25TA4 PO; -POTA10TA51 PO; -SPIR25TA8 PO
[2022-05-10] MEDS ORDERED: dilTIAZem 25 MG/5 ML VIAL IV ONE (21:15)
[2022-05-10 21:46] LABS: Basophils # (auto) 0 10 ^3/uL (0-0.2); Basophils % (auto) 0.9 % (0.0-2.0); Eosinophils # (auto) 0 10 ^3/uL (0-0.8); Eosinophils % (auto) 0.1 % (0.0-7.0); Hematocrit 44.2 % (41.0-53.0); Lymphocytes # (auto) 0.5 10 ^3/uL (0.4-5.4); Lymphocytes % (auto) 11.9 % (10.0-50.0); Mean Corpuscular Hemoglobin 32.2 pg (28.0-32.0); Mean Corpuscular Volume 94.7 fL (80.0-100.0); Monocytes # (auto) 0.4 10 ^3/uL (0-1.3); Monocytes % (auto) 9.2 % (0.0-12.0); Neutrophils # (auto) 3.5 10 ^3/uL (1.6-8.6); Neutrophils % (auto) 77.9 % (37.0-80.0); Nucleated Red Blood Cells % 0.3 %; Red Blood Cells 4.67 10^6/uL (4.5-5.90); Red Cell Distribution Width 13.6 % (11.8-14.3); White Blood Cell 4.4 10^3/uL (4.4-10.8)
[2022-05-10 22:04] LABS: INR 1.32 (0.9-1.15); Partial Thromboplastin Time 28.1 sec (24.6-33.4)
[2022-05-10 22:28] LABS: Albumin 3.4 g/dL (3.4-5.0); Calcium 9.1 mg/dL (8.5-10.1)
[2022-05-10 22:30] LABS: BUN/Creatinine Ratio 16.1
[2022-05-10 22:32] LABS: Bilirubin, Total 1.6 mg/dL (0.2-1.0); Total Protein 7.1 g/dL (6.4-8.2)
[2022-05-10] MEDS ORDERED: FUROSEMIDE 100 MG/10ML VIAL IV ONE (23:45)
[2022-05-11] MEDS ORDERED: AZITHROMYCIN 500MG/ 250ML 250 ML IV ONE (00:15)
[2022-05-11] MEDS ORDERED: MORPHINE SULFATE INJ 2 MG/ml SYRG IV PRN (00:15)
[2022-05-11] MEDS ORDERED: cefTRIAXone 1GM/50ML D5W 50 ML IV ONE (00:15)
[2022-05-11] MEDS ORDERED: NITROGLYCERIN 0.4 MG SL TAB SL PRN (00:15)
[2022-05-11 01:50] VITALS: BP 109/70
[2022-05-11] MEDS ORDERED: ALBUTEROL MEDNEB 2.5 mg/3ml NEB ONE ×2 (06:50→12:09)
[2022-05-11] MEDS: ALBUTEROL SULF 2.5 MG/0.5ML(0.5%) NEB SOLN NEB PRN ×2 (07:06→12:08)
[2022-05-11] MEDS: cefTRIAXone 1GM/50ML D5W 50 ML IV SCH (09:47)
[2022-05-11] MEDS: PANTOPRAZOLE 40 MG TAB PO SCH (09:51)
[2022-05-11] MEDS: DIGOXIN 0.125 MG TAB PO SCH ×2 (09:52→09:59)
[2022-05-11] MEDS: FUROSEMIDE 40 MG TAB PO SCH (09:53)
[2022-05-11] MEDS: ENOXAPARIN SOD 40 MG/0.4 ML SYRINGE SC SCH ×2 (09:53→10:00)
[2022-05-11] MEDS ORDERED: CARVEDILOL 3.125 MG TAB PO SCH (10:00)
[2022-05-11] MEDS ORDERED: SACUBITRIL-VALSARTAN 24mg/26mg TAB PO SCH (10:00)
[2022-05-11] MEDS ORDERED: ASPirin 81 mg TAB PO SCH (10:00)
[2022-05-11] MEDS: AZITHROMYCIN 500MG/ 250ML 250 ML IV SCH (10:48)
[2022-05-11] MEDS ORDERED: DIGOXIN (250MCG/ML) 2 ML AMPULE IV ONE (13:00)
[2022-05-11 13:25] LABS: Magnesium 1.8 mg/dL (1.6-2.6)
[2022-05-11] MEDS: APIXABAN 5 MG TAB PO SCH ×2 (13:49→22:12)
[2022-05-11 18:02] LABS: Urine Bacteria NONE SEEN /hpf (None Seen); Urine Blood Negative /uL (Negative); Urine WBC <1 /hpf (0 - 3)
[2022-05-11 18:13] LABS: Alcohol, Urine < 3.0 mg/dL (0-10); Amphetamine Screen, Urine NEGATIVE (NEGATIVE); Barbiturate Scree,Urine NEGATIVE (NEGATIVE); Benzodiazephine Screen, Urine NEGATIVE (NEGATIVE); Cannabinoid Screen, Urine NEGATIVE (NEGATIVE); Cocaine Screen, Urine NEGATIVE (NEGATIVE); Opiate Scree,Urine NEGATIVE (NEGATIVE); Phencyclidine Screen, Urine NEGATIVE (NEGATIVE)
[2022-05-11] MEDS: SACUBITRIL-VALSARTAN 24mg/26mg TAB PO SCH (22:11)
[2022-05-11] MEDS: CARVEDILOL 3.125 MG TAB PO SCH (22:14)
[2022-05-12] VITALS (7 sets, daily range): BP systolic 16–130; BP diastolic 65–88
[2022-05-12] MEDS: ONDANSETRON HCL 4 MG/2 ML VIAL IV PRN ×2 (00:20→20:41)
[2022-05-12] MEDS ORDERED: ALBUTEROL MEDNEB 2.5 mg/3ml NEB ONE ×3 (00:26→21:37)
[2022-05-12] MEDS: guaiFENesin-DM 100/10mg/5ml SYR PO PRN ×3 (01:06→15:12)
[2022-05-12] MEDS: HYDROcodone-ACET 5/325MG TAB PO PRN ×4 (01:41→23:01)
[2022-05-12 06:46] LABS: Basophils # (auto) 0 10 ^3/uL (0-0.2); Basophils % (auto) 1.6 % (0.0-2.0); Eosinophils # (auto) 0 10 ^3/uL (0-0.8); Eosinophils % (auto) 1.3 % (0.0-7.0); Hematocrit 39.5 % (41.0-53.0); Hemoglobin 13.8 g/dL (13.5-17.5); Lymphocytes # (auto) 0.4 10 ^3/uL (0.4-5.4); Lymphocytes % (auto) 11.3 % (10.0-50.0); Mean Corpuscular Hgb Conc. 34.9 g/dL (32.0-36.0); Mean Corpuscular Volume 94.4 fL (80.0-100.0); Monocytes # (auto) 0.3 10 ^3/uL (0-1.3); Monocytes % (auto) 10.4 % (0.0-12.0); Neutrophils # (auto) 2.4 10 ^3/uL (1.6-8.6); Neutrophils % (auto) 75.4 % (37.0-80.0); Nucleated Red Blood Cells % 0.1 %; Red Blood Cells 4.19 10^6/uL (4.5-5.90); Red Cell Distribution Width 13.1 % (11.8-14.3); White Blood Cell 3.2 10^3/uL (4.4-10.8)
[2022-05-12 07:08] LABS: Albumin 2.8 g/dL (3.4-5.0); BUN/Creatinine Ratio 16.1; Calcium 8.4 mg/dL (8.5-10.1); Potassium 4.1 mmol/L (3.5-5.1)
[2022-05-12 07:10] LABS: Bilirubin, Total 0.9 mg/dL (0.2-1.0); Total Protein 6.1 g/dL (6.4-8.2)
[2022-05-12] MEDS: cefTRIAXone 1GM/50ML D5W 50 ML IV SCH (08:34)
[2022-05-12] MEDS ORDERED: IPRATROPIUM BROM 0.5 MG/2.5ML INH SOL ONE (09:05)
[2022-05-12] MEDS ORDERED: MAGNESIUM SULFATE 1GM/100ML 100 ML IV ONE (09:30)
[2022-05-12] MEDS: AZITHROMYCIN 500MG/ 250ML 250 ML IV SCH (09:42)
[2022-05-12] MEDS: APIXABAN 5 MG TAB PO SCH ×2 (09:45→23:06)
[2022-05-12] MEDS: SACUBITRIL-VALSARTAN 24mg/26mg TAB PO SCH ×2 (09:48→23:02)
[2022-05-12] MEDS: DIGOXIN 0.125 MG TAB PO SCH (09:48)
[2022-05-12] MEDS: CARVEDILOL 3.125 MG TAB PO SCH ×2 (09:48→23:04)
[2022-05-12] MEDS: FUROSEMIDE 40 MG TAB PO SCH (09:49)
[2022-05-12] MEDS: PANTOPRAZOLE 40 MG TAB PO SCH (09:49)
[2022-05-12] MEDS: ALBUTEROL SULF 2.5 MG/0.5ML(0.5%) NEB SOLN NEB PRN ×2 (10:25→21:43)
[2022-05-12] MEDS ORDERED: DOCUSATE SOD 100 MG CAP PO PRN (21:15)
[2022-05-12] MEDS ORDERED: FUROSEMIDE 40 MG/4 ML VIAL IV ONE (21:15)
[2022-05-12] MEDS ORDERED: SENNA 8.6 MG TAB PO SCH (22:00)
[2022-05-12] MEDS: ALBUTEROL SULF 2.5 MG/0.5ML(0.5%) NEB SOLN NEB SCH (22:30)
[2022-05-12] MEDS: ACETYLCYSTEINE 20%(200MG/ML) SOL 4ML NEB SCH (23:26)
[2022-05-13] MEDS: LACTULOSE 20Gm/30ML SOLN PO SCH ×3 (01:29→13:51)
[2022-05-13 05:00] VITALS: BP 117/74
[2022-05-13] MEDS: HYDROcodone-ACET 5/325MG TAB PO PRN (05:27)
[2022-05-13] MEDS: ACETYLCYSTEINE 20%(200MG/ML) SOL 4ML NEB SCH ×2 (06:00→12:00)
[2022-05-13] MEDS ORDERED: ALBUTEROL MEDNEB 2.5 mg/3ml NEB ONE ×2 (06:10→11:59)
[2022-05-13] MEDS: ALBUTEROL SULF 2.5 MG/0.5ML(0.5%) NEB SOLN NEB SCH ×3 (06:48→12:00)
[2022-05-13 08:15] VITALS: BP 101/73
[2022-05-13 08:30] VITALS: BP 101/73
[2022-05-13] MEDS: cefTRIAXone 1GM/50ML D5W 50 ML IV SCH (09:02)
[2022-05-13] MEDS ORDERED: DIGOXIN 0.125 MG TAB PO SCH (09:35)
[2022-05-13] MEDS: APIXABAN 5 MG TAB PO SCH (10:00)
[2022-05-13] MEDS ORDERED: FUROSEMIDE 40 MG/4 ML VIAL IV SCH (10:00)
[2022-05-13] MEDS: PANTOPRAZOLE 40 MG TAB PO SCH (10:33)
[2022-05-13] MEDS: CARVEDILOL 3.125 MG TAB PO SCH (10:33)
[2022-05-13] MEDS: SACUBITRIL-VALSARTAN 24mg/26mg TAB PO SCH (10:34)
[2022-05-13] MEDS: AZITHROMYCIN 500MG/ 250ML 250 ML IV SCH (10:35)
[2022-05-13] MEDS: ONDANSETRON HCL 4 MG/2 ML VIAL IV PRN (10:44)
[2022-05-13 12:30] VITALS: BP 96/49
[2022-05-13] MEDS ORDERED: DOXY-338 PO (12:35)
[2022-05-13 14:46] VITALS: BP 96/49
== END 2022-05-13 16:06 | disposition home or self-care (01) | DRG 139 ==
LOC: EDBD 20:17 → ER 20:17 → TELE 05-11 00:19 → TELE-WESTW 05-11 22:59
PROVIDERS: ADMIT Nurse Practitioner; ATTEND Internal Medicine
DX: J18.9 Pneumonia, unspecified organism (principal); I50.43 Acute on chronic combined systolic (congestive) and diastolic (congestive) heart failure; I42.0 Dilated cardiomyopathy; N18.6 End stage renal disease; K74.60 Unspecified cirrhosis of liver; I13.2 Hypertensive heart and chronic kidney disease with heart failure and with stage 5 chronic kidney disease, or end stage renal disease; I48.91 Unspecified atrial fibrillation; R73.03 Prediabetes; Z20.822 Contact with and (suspected) exposure to COVID-19; Z91.199 Patient's noncompliance with other medical treatment and regimen due to unspecified reason; Z86.711 Personal history of pulmonary embolism; Z95.810 Presence of automatic (implantable) cardiac defibrillator
CPT/HCPCS: 36415; 71045; 71275; 80053; 80061; 80307; 81001; 82140; 83036; 83605; 83735; 83880; 84443; 84484; 85025; 85379; 85610; 85730; 87426; 93005; 93306; 93970; 94640; 96374; 96375; 99291; G0378; J0696; J2405